=== PATIENT | female | born 1945 | race Caucasian/White ===

== ENCOUNTER 2018-09-04 16:16 | Outpatient (REF) | payer MEDICARE, SELFPAY | END 2018-09-04 16:36 | LOC: LBN 16:16 | PROVIDERS: PCP Family Medicine; Visit Provider Obstetrics & Gynecology | DX: N39.3 Stress incontinence (female) (male) (principal) | CPT/HCPCS: 87086 ==

== ENCOUNTER → 2018-10-21 08:33 | Outpatient (BNVA) | payer MEDICARE, SELFPAY | PROVIDERS: PCP Family Medicine; Visit Provider Urology | DX: Z90.710 Acquired absence of both cervix and uterus (principal); N39.3 Stress incontinence (female) (male); I10 Essential (primary) hypertension | CPT/HCPCS: 51798; 99203; 99215 ==

== ENCOUNTER 2019-01-22 07:58 | Inpatient (IN) | payer MEDICARE, SELFPAY ==
[2019-01-22] VITALS (18 sets, daily range): BP systolic 101–181; BP diastolic 47–86; PULSE 54–71; RESP 10–18; TEMP 36–36.9; O2SAT 94–100
[2019-01-22] MEDS: Lactated Ringers 1,000 ML 80 ML IV ×3 (08:51→14:51)
--- NOTE | 2019-01-22 09:59 | W.PM.HP.N ---
Date of service: 01/22/19 Time of Service: 09:59 Assessment and Plan (1) Urinary, incontinence, stress female: Current visit: Yes Status: Chronic She is reluctant to have a mesh product used given her previous inguinal hernia complications. We have decided to go ahead with a pubovaginal sling utilizing autologous fascia. We will plan on harvesting the fascia from the rectus through an abdominal incision. I have offered to provide an injection up toward the psoas muscle on the right. This injection will be given vaginally rather than abdominally We will plan on keeping the patient here in the hospital overnight with a Valdovinos catheter. Depending on her pain medication requirement and her ability to tolerate oral intake, she may be able to go home with a catheter tomorrow. Her daughter is a nurse and would be able to remove her catheter at home so she would not need another trip into our office. History of Present Illness Chief Complaint: Stress urinary incontinence Narrative: This is a 73-year-old woman who was evaluated for stress urinary incontinence. Her leakage has been present for over a year now. The number of incontinent episodes are increasing both in frequency and in severity. Her leakage occurs when she coughs laughs or sneezes. She does not have urgency or urgency incontinence. She has no enuresis. She does not leak when she is supine. She has had 4 previous vaginal deliveries. She has had an abdominal hysterectomy. She has never had pelvic radiation. She is a history of a right inguinal hernia using mesh. The mesh was subsequently removed but she has chronic pain which is felt to be related to her Psoas muscle. Review of Systems Review of Systems No fevers or chills No vision change or dysphasia No diabetes or thyroid No shortness of breath, cough or hemoptysis No chest pain. Hx SVT No nausea, vomiting, hepatitis, ulcers, jaundice, diarrhea or constipation No seizures, strokes or peripheral neuropathy No bleeding disorders or anemia No gout. Chronic right groin pain PFSH Medical History Urinary, incontinence, stress female (Chronic) Atrophic vaginitis (Acute 02/24/13) Lichen sclerosus et atrophicus (Acute 06/26/12) Neuropathy (Acute) Benign paroxysmal positional vertigo (Acute) Bronchiectasis (Acute) [place] lesion of lung (Acute) Diverticulitis of gastrointestinal tract (Acute) Dysphagia (Acute) Edema (Acute) Extrapyramidal disease (Acute) Generalized anxiety disorder (Acute) Hemoptysis (Acute) Hip pain (Acute) Hyperlipidemia (Acute) Inflammatory dermatosis (Acute) Menopause (Acute) Palpitations (Acute) Restless legs (Acute) Right lower quadrant pain (Acute) Urinary incontinence (Acute) Varicose veins of lower extremity (Acute) Hypertensive disorder (Chronic) Hypothyroidism (Chronic) Supraventricular tachycardia (Chronic) Surgical History Acquired absence of both cervix and uterus (Acute 12/02/17) History of left cataract surgery (Acute) History of right cataract surgery (Acute) H/O tubal ligation (Chronic) History of hernia repair (Chronic) Hx of cholecystectomy (Chronic) Abdominal hysterectomy (~1984) Biopsy of breast (~2004) varicose vein stripping Family History Mother Colon cancer Heart disease Father Cancer Social History Smoking/Tobacco Use Status: Never Alcohol Intake: never Drug use: Never Household members: spouse What type of physical activity do you participate in: none Meds Home Medications Medication Instructions Recorded Confirmed Type Bioflavanoids DAILY 02/24/13 09/04/18 History Bluegreen Algae 500 mg PO DAILY 02/24/13 01/22/19 History Feverfew 500 mg PO DAILY 02/24/13 01/22/19 History Rutin DAILY 02/24/13 09/04/18 History gabapentin 300 mg PO BID 02/24/13 01/22/19 History lorazepam 0.5 mg PO PRN 02/24/13 01/22/19 History aspirin [Aspir 81] 81 mg PO DAILY tab-cap 06/17/14 01/22/19 History Atorvastatin Calcium 10 mg PO DAILY tab-cap 12/02/17 01/22/19 History cannabidiol (CBD) 100 mg/mL oral See Rx Instructions PO DAILY ml 09/04/18 01/22/19 History solution ciprofloxacin 0.3 %-dexamethasone 2 drp OT BID PRN ml 09/04/18 01/22/19 History 0.1 % ear drops,suspension lutein-zeaxanthin 25 mg-5 mg 1 cap PO DAILY cap 09/04/18 01/22/19 History capsule propranolol ER 80 mg capsule,24 80 mg PO DAILY 09/04/18 01/22/19 History hr,extended release levothyroxine 137 mcg PO DAILY 01/20/19 01/22/19 History Allergies Allergy/AdvReac Type Severity Reaction Status Date / Time oxycodone HCl [From Percocet] Allergy itching/nick Unverified 01/20/19 12:22 h Exam Const General: cooperative, healthy appearing, comfortable and no acute distress Neck Neck: supple Resp Effort & Inspection: normal respiratory effort Auscultation: clear to auscultation bilaterally Cardio Rate: regular rate Rhythm: regular rhythm GI Palpation: soft and no masses Skin General skin exam: no rashes or lesions noted Neuro General: alert, awake and oriented x3 Extrem General: no edema Results Last Vital Signs Temp 36 C L 01/22/19 08:34 Pulse 64 01/22/19 08:34 Resp 16 01/22/19 08:34 BP 136/86 01/22/19 08:34 Pulse Ox 100 01/22/19 08:34
[2019-01-22] MEDS: Bupivacaine LIPOSOME/PF 133 MG/10 ML VIAL IJ (10:59)
[2019-01-22] MEDS: ceFAZolin 1 GM/50 ML BAG IVPB (11:10)
[2019-01-22] MEDS: Normal Saline 20 ML VIAL (12:37)
--- NOTE | 2019-01-22 15:46 | NUR.NOTE ---
Addendum entered by Tamiko Hartmann 01/22/19 15:49: Denies CP or pressure. Telemetry applied. BS +. Enc to take deep breaths and cough. ABD dressing CDI. Patient has vaginal packing in place w scant blood noted on skin around vaginal area. Valdovinos to gravity drainage w pink urine noted in bag and tubing. SCD's in use. PP+ All extremities are warm w good pulses. NO LE edema noted. Sipping clear liquids well. Oriented to call allison system and upper bed rails in use. See VS intervention. Original Note: Nursing Note: Admited from PACU to room 208 via stretcher. Slider mat used for transfer. Well tolerated. Denies pain or nausea. States is somewhat anxious at time pre op and immediately post op but appears relaxed at this time & states she is pretty good. LS clear and diminihsed
[2019-01-22 16:25] LABS: Anion Gap 9.6 mmol/L (3-11); BUN 13 mg/dL (7-18); CO2 25.4 mmol/L (21.0-32.0); CREATININE 0.83 mg/dL (0.55-1.02); Chloride 102 mmol/L (98-107); Glucose 193 mg/dL (70-100); Potassium 3.7 mmol/L (3.5-5.1); Sodium 137 mmol/L (136-145)
[2019-01-22 16:33] LABS: Magnesium 1.8 mg/dL (1.8-2.4)
[2019-01-22 16:46] LABS: Troponin I < 0.02 ng/mL (0.00-0.06)
[2019-01-22] MEDS: Ketorolac 15 MG/ML VIAL IVP ×2 (18:13→23:42)
[2019-01-22] MEDS: Normal Saline Flush 10 ML SYR IV (18:14)
[2019-01-22] MEDS: Gabapentin 300 MG CAP PO (19:54)
[2019-01-23] MEDS: Lactated Ringers 1,000 ML 80 ML IV (04:03)
[2019-01-23] MEDS: Ketorolac 15 MG/ML VIAL IVP (06:33)
[2019-01-23 06:52] LABS: HCT 32.9 % (36.0-46.0); Mean Corp. HGB Concentration 33.4 g/dL (32.0-36.0); Mean Corpuscular Hemoglobin 31.2 pg (27.0-33.0); Mean Corpuscular Volume 93.2 fL (80-95); Mean Platelet Volume 11.6 fL (8.0-11.0); Platelet Count 166 x1000/uL (130-400); RBC 3.53 m/cumm (4.00-5.20); RBC Distribution Width 12.1 % (11.7-14.6); White Blood Cell Count 12.31 k/cumm (4.4-10.8)
--- NOTE | 2019-01-23 07:47 | PDOC.CMIN ---
- If Service Date Differs Date of service: 01/23/19 Time of Service: 07:47 Care Management Initial Assess REASON FOR HOSPITALIZATION:: Stress Incontinence PAST MEDICAL HISTORY/PAST SURGICAL HISTORY:: Medical History: Urinary, incontinence, stress female, Atrophic vaginitis, Lichen sclerosus et atrophicus, Neuropathy ,Benign paroxysmal positional vertigo ,. Bronchiectasis, [place] lesion of lung, Diverticulitis of gastrointestinal tract. Dysphagia, Edema, Extrapyramidal disease,Generalized anxiety disorder te). Hemoptysis, Hip pain, Hyperlipidemia,Inflammatory dermatosis,Menopause. Palpitations, Restless legs, Right lower quadrant pain, Urinary incontinence. Varicose veins of lower extremity, Hypertensive disorder, Hypothyroidism. Supraventricular tachycardia. Surgical History. Acquired absence of both cervix and uterus (Acute 12/02/17). History of left cataract surgery (Acute). History of right cataract surgery (Acute). H/O tubal ligation (Chronic). History of hernia repair (Chronic). Hx of cholecystectomy (Chronic). Abdominal hysterectomy (~1984). Biopsy of breast (~2004). varicose vein stripping PREVIOUS FUNCTIONAL STATUS/SOCIAL/FAMILY SUPPORTS:: Karen lives in a single family home in [facility] [place] with her [employer]. 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 One daughter is a nurse at [employer] and she will stay with Karen through the weekend to help her out. Karen is completely independent with ADLs and driving. CURRENT FUNCTIONAL STATUS:: Karen was sitting up in bed during CM visit. She stated that she feels really good and has no pain. She had surgery yesterday to address her stress incontinence. She will be discharged home later today with a garcia catheter, which her daughter will help her care for. ADVANCE DIRECTIVES:: Does not have and is not interested. Has patient been provided with information about the portal?: Yes Did the patient sign up for the portal?: No CODE STATUS:: Full Code INSURANCE COVERAGE / FINANCIAL ISSUES:: Medicare. [employer] CURRENT HOME/COMMUNITY SERVICES/EQUIPMENT:: None PRIMARY CARE PHYSICIAN:: Lina Macario POTENTIAL DISCHARGE NEEDS:: None identified. RN daughter will assist with catheter care and dressing changes. PATIENT/FAMILY EDUCATION NEEDS:: Discharge plan, limitations, follow up plan of care, Ask Me Three ANTICIPATED BARRIERS TO DISCHARGE:: none TRANSPORTATION:: Via private automobile with family at discharge. PLAN:: Karen will be discharged home with garcia catheter in place this afternoon. Her daughter, who is a nurse, will assist with catheter care, voiding trial when ready and dressing changes. No additional services are required. She will be transported home with family via private auto. She will follow up with her surgeon early next with and with the discharge plan of care.
--- NOTE | 2019-01-23 07:56 | DSE_ITS ---
Date of service: 01/23/19 Time of Service: 12:18 DS: Diagnosis Discharge Diagnosis (1) Urinary, incontinence, stress female: Status: Chronic (2) History of pubovaginal sling: Status: Inactive Discharge Plan Disposition Patient Disposition: HOME Condition: Stable Discharge Details Reason For Visit: STRESS INCONTINENCE Admit Date/Time: 01/22/19 07:58 Admit Provider: José Lange Attending Provider: José Lange Primary Care Provider: Lina Macario Hospital Course Hospital Course: The patient was brought to the operating room on 01/22/2019. She underwent harvesting of rectus fascia for creation of a pubovaginal sling. The sling was successfully placed at the bladder neck. She had no ectopy during her procedure, but upon arrival to the recovery room, she was found to be in trigeminy. She had no clinical signs of hypoxia. She was not experiencing chest pain. The trigeminy resolved with an injection of lidocaine. She was monitored overnight on telemetry. No additional ectopy was noted. I did not ask for a formal hospitalist consult but had plan to do so if her ectopy continued. Based on the hospitalist recommendation, a single baseline troponin was obtained. The troponin level was quite low. No other significant abnormalities were found on her basic metabolic panel, magnesium level or CBC. A Garcia catheter was left in place and the patient was hospitalized overnight for IV hydration and analgesics. She was able to tolerate a regular diet and was transitioned to oral pain control. Her catheter showed bloody urine which gradually cleared with no additional intervention. Once we were sure she was able to be managed with oral analgesics, she was discharged to home. Home Meds and New Rx's Prescriptions: Discontinued aspirin [Aspir-81] 81 MG tablet,delayed release (DR/EC) 81 mg PO DAILY RF: 0 No Action propranolol 80 mg capsule,extended release 24 hr 80 mg PO DAILY RF: 0 lutein-zeaxanthin [Ocuvite Lutein 25] 25-5 mg capsule 1 cap PO DAILY RF: 0 cannabidiol (CBD) extract 100 mg/mL solution See Patient Comments PO DAILY RF: 0 Ciprodex 0.3-0.1 % drops,suspension 2 drp OT BID PRNRF: 0 hydrocodone-acetaminophen 5-325 mg tablet 1 - 2 tab PO Q4H MDD 6 PRN (Reason: pain) Qty: 30 RF: 0 lorazepam 0.5 MG tablet 0.5 mg PO PRN RF: 0 gabapentin 300 MG capsule 300 mg PO BID RF: 0 FEVERFEW 500 MG capsule 500 mg PO DAILY RF: 0 bioflavanoids DAILY RF: 0 bluegreen algae 500 mg PO DAILY RF: 0 rutin DAILY RF: 0 Atorvastatin Calcium 10 MG tablet 10 mg PO DAILY RF: 0 levothyroxine 137 mcg Capsule 137 mcg PO DAILY RF: 0 Discharge Instructions Additional Instructions: Hold aspirin until follow up appt No lifting over 10 pounds or straining OK to shower - expect steristrips to begin to come off on their own Pt's daughter will remove pts catheter on Friday 01/26 and replace garcia if pt unable to void (please send pt home with garcia kit) F/U with me @ 2 to 4 weeks - sooner if pt's catheter needs to be replaced on Saturday Stand Alone Forms: Nursing Discharge Form Referrals: Lina Macario [Primary Care Provider] - 02/09/19 2:20 pm Activity:: see above Equipment/Supplies:: garcia to gravity Diet:: As Tolerated Exam Narrative Exam Narrative: On the morning of discharge, she looks well. She does not appear septic or toxic. Her vital signs are documented elsewhere in the chart Her abdomen is soft with no guarding or rebound tenderness. Her surgical abdominal incision is clean and dry. Her Steri-Strips are intact. Her urethral catheter is in place draining red-tinged urine. No clots are identified in the catheter bag. Her vaginal packing has been successfully removed. She is awake, alert and oriented. DS: Data Vitals/I&O Vitals and I&O: Vital Signs Temperature 36.4 C L 01/22/19 20:57 Temperature Source Temporal Artery Scan 01/22/19 20:57 Pulse 66 01/22/19 23:12 Pulse Rhythm Regular 01/22/19 19:30 Respiratory Rate 17 01/22/19 20:57 Respiratory Effort Non-Labored 01/22/19 19:30 Respiratory Depth Normal 01/22/19 19:30 Respiratory Pattern Normal 01/22/19 19:30 Blood Pressure 110/61 01/22/19 20:57 Pulse Oximetry 97 01/22/19 20:57 Respiratory End-tidal CO2 32 01/22/19 14:10 Oxygen Delivery Method Room Air 01/22/19 20:57 Oxygen Flow Rate 0 01/22/19 20:57 Pain Level 3 01/22/19 18:14 Comment 01/22/19 18:14 Intake & Output 01/22/19 01/22/19 01/23/19 11:59 23:59 11:59 Intake Total 50 / 3405.333 3355.333 / 3405.333 936.000 / 936.000 Output Total 725 / 725 1050 / 1050 Balance 50 / 2680.333 2630.333 / 2680.333 -114.000 / -114.000 Weight 63.5 kg Intake: IV 50 / 2445.333 2395.333 / 2445.333 696.000 / 696.000 Oral 960 / 960 240 / 240 Output: Urine 625 / 625 1050 / 1050 Estimated Blood Loss 100 / 100 Other: Urine Color Dark Red Dark Red Urine Appearance Hematuria Hematuria Clots Comment clots in the line, cleared no clots Emesis Description None Labs on day of discharge: Labs from last 24 hours 01/23/19 01/22/19 01/22/19 06:25 16:03 16:03 WBC 12.31 H RBC 3.53 L Hgb 11.0 L Hct 32.9 L MCV 93.2 MCH 31.2 MCHC 33.4 RDW 12.1 Plt Count 166 MPV 11.6 H Sodium 137 Potassium 3.7 Chloride 102 Carbon Dioxide 25.4 Anion Gap 9.6 BUN 13 Creatinine 0.83 Estimated GFR/1.73 m2 >= 60.00 Glucose 193 H Calcium 8.0 L Magnesium 1.8 Troponin I < 0.02 [facility] Medical History Urinary, incontinence, stress female (Chronic) Atrophic vaginitis (Acute 02/24/13) Lichen sclerosus et atrophicus (Acute 06/26/12) Neuropathy (Acute) Benign paroxysmal positional vertigo (Acute) Bronchiectasis (Acute) [place] lesion of lung (Acute) Diverticulitis of gastrointestinal tract (Acute) Dysphagia (Acute) Edema (Acute) Extrapyramidal disease (Acute) Generalized anxiety disorder (Acute) Hemoptysis (Acute) Hip pain (Acute) Hyperlipidemia (Acute) Inflammatory dermatosis (Acute) Menopause (Acute) Palpitations (Acute) Restless legs (Acute) Right lower quadrant pain (Acute) Urinary incontinence (Acute) Varicose veins of lower extremity (Acute) Hypertensive disorder (Chronic) Hypothyroidism (Chronic) Supraventricular tachycardia (Chronic) Surgical History Acquired absence of both cervix and uterus (Acute 12/02/17) History of left cataract surgery (Acute) History of pubovaginal sling (Inactive 01/22/19) History of right cataract surgery (Acute) H/O tubal ligation (Chronic) History of hernia repair (Chronic) Hx of cholecystectomy (Chronic) Abdominal hysterectomy (~1984) Biopsy of breast (~2004) varicose vein stripping Family History Mother Colon cancer Heart disease Father Cancer Social History Smoking/Tobacco Use Status: Never Alcohol Intake: never Drug use: Never Household members: spouse What type of physical activity do you participate in: none
[2019-01-23 08:00] VITALS: BP 110/62; PULSE 65; RESP 18; TEMP 36.6; O2SAT 100
[2019-01-23] MEDS: Docusate Sodium 100 MG CAP PO (09:01)
[2019-01-23] MEDS: Gabapentin 300 MG CAP PO (09:01)
[2019-01-23] MEDS: Atorvastatin 10 MG TAB PO (09:01)
--- NOTE | 2019-01-23 09:39 | ROE_ITS ---
REPORT OF OPERATIVE PROCEDURE DATE OF PROCEDURE January 22, 2019 PREOPERATIVE DIAGNOSIS Stress urinary incontinence. POSTOPERATIVE DIAGNOSIS Stress urinary incontinence. PROCEDURE Pubovaginal sling using autologous rectus fascia. SURGEON José Lange M.D. ANESTHESIA General. COMPLICATIONS None. ESTIMATED BLOOD LOSS 100 cc. HISTORY This is a 73-year-old woman who has had four previous vaginal deliveries. She has had a hysterectomy. She has progressive urinary incontinence when she coughs, laughs or sneezes. On examination, she has a hypermobile urethra consistent with stress urinary incontinence. She has escobar d some adverse reactions to mesh products when they were used for inguinal hernia repair. She is not interested in a mesh product for her incontinence. She presents for pubovaginal sling using autologou s fascia. OPERATIVE REPORT The patient was brought to the Operating Room on 01/22/19. After successful induction of general anest hesia, she is placed in the dorsal lithotomy position. Her low abdomen and her genitalia were both pr epped and draped sterilely. We began the procedure by harvesting the rectus fascia. We made a Pfannenstiel incision just above th e level of the symphysis pubis. The incision was extended down through the subcutaneous fat until th e rectus fascia was identified. A 2-cm x 10-cm segment of fascia was identified and isolated for the sling. The fascia was incised using the Bovie and dissected from the underlying rectus muscle. Once the fascial sling was secured, we checked the wound for hemostasis. We closed the gap in the rec tus fascia with segments of running #2-0 Prolene suture. We then turned our attention to the vaginal portion of the incision. A #16-Nepali Valdovinos catheter was passed through the urethra into the bladder. Catheter balloon was inflated with 10 cc of sterile wate r. The bladder was drained. The catheter was then clamped. The anterior vaginal wall was then injected using a combination of saline plus 1% lidocaine with epin ephrine. This provided hydrodissection on each side of the urethra out to the pelvic sidewall. An anterior vaginal wall incision was made overlying the urethra. We extended the excision back to th e bladder neck. We dissected on either side of the urethra up to the under surface of the rectus musc le. We swept the bladder and urethra medially to help prevent injury. We then prepared the sling by placing bundling sutures on each end of the fascial sling. We used #0 P rolene for this maneuver. We then passed Stamey needles from the abdominal incision down through the area of dissection lateral to the bladder and urethra. Once the needles were passed, we pulled the b undling sutures attached to the fascial sling from the vaginal area up to the abdominal area. We then performed cystoscopy and identified an area of suture within the right bladder sidewall. We then re- positioned the needle and re-positioned the sling so that no foreign material was identified within t he bladder. Once the needles had been successfully passed, we passed Dong scissors between the sling and the uret hra. We then tied the ends of the sling on the abdominal wall. We ensure that the sling was lying fla t against the urethra with no undue tension. The abdominal incision was then closed in two layers. We reapproximated the subcutaneous tissue with simple interrupted #2-0 Vicryl suture. The skin was clos ed with the subcuticular #4-0 Vicryl. The vaginal incision was closed with [id number] #2-0 Vicryl. A vaginal packing was applied. The catheter will be left in place for a minimum of three days to allow the bladder to heal. The patient tolerated this procedure well with no complications. The Estimated blood loss was less th an 100 cc. CC: Lina Macario M.D.
[2019-01-23] MEDS: Normal Saline Flush 10 ML SYR IV (11:07)
[2019-01-23 12:00] VITALS: BP 123/57; PULSE 67; RESP 16; TEMP 36.1; O2SAT 99
--- NOTE | 2019-01-23 12:08 | NUR.NOTE ---
Nursing Note: 1150: called [facility] to report that pt has dry mouth and vision is not as clear as it usually is; pt has scopolamine patch behind left ear. Fabby requests that patch be removed. RN removes patch and places in proper disposal site.
[2019-01-23] MEDS: HYDROcodone 5/Acetaminophen 325 TAB PO (12:28)
[2019-01-23 12:50] VITALS: PULSE 73
--- NOTE | 2019-01-23 14:09 | INITIAL_ITS ---
- If Service Date Differs Date of service: 01/23/19 Time of Service: 07:47 Care Management Initial Assess REASON FOR HOSPITALIZATION:: Stress Incontinence PAST MEDICAL HISTORY/PAST SURGICAL HISTORY:: Medical History: Urinary, incontinence, stress female, Atrophic vaginitis, Lichen sclerosus et atrophicus, Neuropathy ,Benign paroxysmal positional vertigo ,. Bronchiectasis, [place] lesion of lung, Diverticulitis of gastrointestinal tract. Dysphagia, Edema, Extrapyramidal disease,Generalized anxiety disorder te). Hemoptysis, Hip pain, Hyperlipidemia,Inflammatory dermatosis,Menopause. Palpitations, Restless legs, Right lower quadrant pain, Urinary incontinence. Varicose veins of lower extremity, Hypertensive disorder, Hypothyroidism. Supraventricular tachycardia. Surgical History. Acquired absence of both cervix and uterus (Acute 12/02/17). History of left cataract surgery (Acute). History of right cataract surgery (Acute). H/O tubal ligation (Chronic). History of hernia repair (Chronic). Hx of cholecystectomy (Chronic). Abdominal hysterectomy (~1984). Biopsy of breast (~2004). varicose vein stripping PREVIOUS FUNCTIONAL STATUS/SOCIAL/FAMILY SUPPORTS:: Karen lives in a single family home in [facility] with her [employer]. 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 One daughter is a nurse at [employer] and she will stay with Karen through the weekend to help her out. Karen is completely independent with ADLs and driving. CURRENT FUNCTIONAL STATUS:: Karen was sitting up in bed during CM visit. She stated that she feels really good and has no pain. She had surgery yesterday to address her stress incontinence. She will be discharged home later today with a garica catheter, which her daughter will help her care for. ADVANCE DIRECTIVES:: Does not have and is not interested. Has patient been provided with information about the portal?: Yes Did the patient sign up for the portal?: No CODE STATUS:: Full Code INSURANCE COVERAGE / FINANCIAL ISSUES:: Medicare. [employer] CURRENT HOME/COMMUNITY SERVICES/EQUIPMENT:: None PRIMARY CARE PHYSICIAN:: Lina Macario POTENTIAL DISCHARGE NEEDS:: None identified. RN daughter will assist with catheter care and dressing changes. PATIENT/FAMILY EDUCATION NEEDS:: Discharge plan, limitations, follow up plan of care, Ask Me Three ANTICIPATED BARRIERS TO DISCHARGE:: none TRANSPORTATION:: Via private automobile with family at discharge. PLAN:: Karen will be discharged home with garcia catheter in place this afternoon. Her daughter, who is a nurse, will assist with catheter care, void ing trial when ready and dressing changes. No additional services are required. She will be transported home with family via private auto. She will follow up with her surgeon early next with and with the discharge plan of care.
--- NOTE | 2019-01-23 15:07 | NUR.NOTE ---
Nursing Note: [id number]: found that pt had CBD oral supplement in medication drawer. called and left message at pt's home to arrange mode of return to pt. pt to call [phone] to discuss with RN
== END 2019-01-23 13:41 | disposition home or self-care (01) | DRG 748 ==
LOC: PDS 08:01 → MS 13:47
PROVIDERS: Admitting Provider Urology; PCP Family Medicine; Visit Provider Urology
PROC: 0TSD0ZZ Reposition Urethra, Open Approach (ICD-10-PCS; CPT 57288; principal; 2019-01-22 09:45)
PROC: 0TJB8ZZ Inspection of Bladder, Via Natural or Artificial Opening Endoscopic (ICD-10-PCS; CPT 52000; 2019-01-22 09:45)
DX: N39.3 Stress incontinence (female) (male) (principal); R00.8 Other abnormalities of heart beat; Z98.890 Other specified postprocedural states; Z96.0 Presence of urogenital implants; Z90.710 Acquired absence of both cervix and uterus; G89.18 Other acute postprocedural pain
CPT/HCPCS: 57288; 36415; 76942; 80048; 85027; 99238; NC; 83735; 84484; J0131; J0690; J1100; J1885; J2250; J2405; J3010

== ENCOUNTER → 2019-01-27 08:22 | Outpatient (BNVA) | payer MEDICARE, SELFPAY | PROVIDERS: PCP Family Medicine; Visit Provider Urology | DX: R33.8 Other retention of urine (principal); I10 Essential (primary) hypertension ==

== ENCOUNTER 2019-01-29 13:49 | Inpatient (IN) | payer MEDICARE, SELFPAY ==
[2019-01-29 09:16] VITALS: BP 146/71; PULSE 66; RESP 17; TEMP 36.7; O2SAT 98
[2019-01-29] MEDS: Lactated Ringers 1,000 ML 80 ML IV ×2 (09:41→19:00)
[2019-01-29] MEDS: ceFAZolin 1 GM/50 ML BAG IVPB (12:10)
--- NOTE | 2019-01-29 12:41 | W.PM.DSUDISC ---
Discharge Plan Disposition Patient Disposition: HOME Condition: Stable Discharge Details Reason For Visit: URINAIRY RETENTION Attending Provider: José Lange Primary Care Provider: Lina Macario Home Meds and New Rx's Prescriptions: No Action propranolol 80 mg capsule,extended release 24 hr 80 mg PO DAILY RF: 0 lutein-zeaxanthin [Ocuvite Lutein 25] 25-5 mg capsule 1 cap PO DAILY RF: 0 cannabidiol (CBD) extract 100 mg/mL solution See Patient Comments PO DAILY RF: 0 Ciprodex 0.3-0.1 % drops,suspension 2 drp OT BID PRNRF: 0 hydrocodone-acetaminophen 5-325 mg tablet 1 - 2 tab PO Q4H MDD 6 PRN (Reason: pain) Qty: 30 RF: 0 lorazepam 0.5 MG tablet 0.5 mg PO PRN RF: 0 gabapentin 300 MG capsule 300 mg PO BID RF: 0 FEVERFEW 500 MG capsule 500 mg PO DAILY RF: 0 bioflavanoids tablet 3 tab DAILY RF: 0 bluegreen algae 500 mg PO DAILY RF: 0 rutin tablet 3 tab DAILY RF: 0 Atorvastatin Calcium 10 MG tablet 10 mg PO DAILY RF: 0 aspirin [Aspir-81] 81 mg Tablet,Delayed Release (Dr/Ec) 81 mg PO RF: 0 levothyroxine 137 mcg Capsule 137 mcg PO DAILY RF: 0 Discharge Instructions Stand Alone Forms: DSU Post op Tonya Diaz (DSU) Activity:: no lifting over 10 pounds until f/u visit Shower/Bathe:: 24 hours Diet:: As Tolerated DS: Diagnosis Discharge Diagnosis (1) Urinary retention: Status: Acute
[2019-01-29 13:14] VITALS: BP 130/67; PULSE 64; RESP 16; TEMP 36; O2SAT 97
[2019-01-29 14:45] VITALS: BP 120/72; PULSE 65; RESP 18; TEMP 36.8; O2SAT 98
[2019-01-29] MEDS: Cephalexin 250 MG CAP PO ×2 (15:52→20:45)
[2019-01-29 15:56] VITALS: BP 121/74; PULSE 67; RESP 18; TEMP 36.8; O2SAT 99
--- NOTE | 2019-01-29 18:35 | NUR.NOTE ---
Addendum entered by Tamiko Hartmann 01/29/19 18:37: admit time 01/29/19 @ 1443. Original Note: Nursing Note: Admited from DSU to room 226via wc. A&O X# denies pain. Oriented to room and call allison system. SBG to bed. see shift assessment. sips of clear given.
[2019-01-29] MEDS: Atorvastatin 10 MG TAB PO (20:45)
[2019-01-29] MEDS: Docusate Sodium 100 MG CAP PO (20:45)
[2019-01-29] MEDS: Gabapentin 300 MG CAP PO (20:45)
[2019-01-30 00:05] VITALS: BP 126/54; PULSE 69; RESP 18; TEMP 36.2; O2SAT 98
[2019-01-30] MEDS: Lactated Ringers 1,000 ML 80 ML IV (06:06)
--- NOTE | 2019-01-30 07:29 | W.PM.PROGNOT ---
Date of Service Date of service: 01/30/19 Time of Service: 07:30 Assessment and Plan (1) Urinary retention: Current visit: No Status: Acute She is still unable to void even after release of her sling. With any physical obstruction from the sling having been addressed, the next most common issue we see are pelvic muscle spasms which cause more of a physiologic obstruction. I will give her a dose of alpha geremias this AM. We have also seen some improvement with the use of vaginal valium in these cases. Subjective Interval history since last seen: She has been unable to void even after release of her sling. She describes a pelvic burning sensation. She is able to tell when her bladder fills. Exam Narrative Exam Narrative: She does not appear flushed or septic. Her abdomen is soft with a healing lower abdominal incision. She is awake and alert. Objective Objective Clinical Data: Vital Signs Temperature 36.2 C L 01/30/19 00:05 Temperature Source Tympanic 01/30/19 00:05 Pulse 69 01/30/19 00:05 Pulse Rhythm Regular 01/29/19 20:20 Respiratory Rate 18 01/30/19 00:05 Respiratory Effort Non-Labored 01/29/19 20:20 Respiratory Depth Normal 01/29/19 20:20 Respiratory Pattern Normal 01/29/19 20:20 Blood Pressure 126/54 L 01/30/19 00:05 Pulse Oximetry 98 01/30/19 00:05 Oxygen Delivery Method Room Air 01/30/19 00:05 Oxygen Flow Rate 0 01/30/19 00:05 Pain Level 0 01/29/19 14:45 Comment 01/29/19 09:16 Intake & Output 01/29/19 01/29/19 01/30/19 11:59 23:59 11:59 Intake Total 2145 / 2145 1188 / 1188 Output Total 1825 / 1825 1100 / 1100 Balance 320 / 320 88 / 88 Weight 62.9 kg Intake: IV 930 / 930 888 / 888 Oral 1215 / 1215 300 / 300 Output: Urine 1825 / 1825 1100 / 1100 Other: Urine Color Pale Pale Yellow Yellow Urine Appearance Clear Clear
[2019-01-30 07:35] VITALS: BP 121/67; PULSE 71; RESP 18; TEMP 36.3; O2SAT 98
[2019-01-30] MEDS: diazePAM 5 MG TAB UD ×2 (08:27→15:32)
[2019-01-30] MEDS: Normal Saline Flush 10 ML SYR IV (08:30)
[2019-01-30] MEDS: Docusate Sodium 100 MG CAP PO ×2 (08:30→19:51)
[2019-01-30] MEDS: Cephalexin 250 MG CAP PO ×3 (08:30→19:51)
[2019-01-30] MEDS: Gabapentin 300 MG CAP PO ×2 (08:30→19:51)
[2019-01-30] MEDS: Tamsulosin 0.4 MG CAPCR 0.8 MG PO (08:36)
--- NOTE | 2019-01-30 09:18 | ROE_ITS ---
REPORT OF OPERATIVE PROCEDURE DATE OF PROCEDURE January 29, 2019 PREOPERATIVE DIAGNOSIS Urinary retention. POSTOPERATIVE DIAGNOSIS Urinary retention. PROCEDURE Cystoscopy with release of pubovaginal sling. SURGEON José Lange M.D. ANESTHESIA General. COMPLICATIONS None. ESTIMATED BLOOD LOSS Minimal. HISTORY This is a 73-year-old woman, who has a history of stress urinary incontinence. She had undergone plac ement of a pubovaginal sling using autologous fascia about a week ago. Her catheter was removed postoperatively, but she has been unable to urinate. She presents for releas e of her sling to help relieve any excess obstruction. DESCRIPTION OF PROCEDURE The patient was brought to the Operating Room on January 29, 2019. After successful induction of general anesthesia, she was placed in the dorsal lithotomy position. Her genitalia and perineum were prepped and draped. Her anterior vaginal wall incision was opened. The sling was identified and isolated with a right ang le. The sling was then incised to release it. Cystoscopy was then performed. No bladder injury was noted. The bladder was filled with 150 cc of mary ine. Pressure was placed on the pats abdominal wall and the fluid freely flowed from her urethra. We then re-closed the vaginal incision using a [id number] #2-0 Vicryl suture. The patient tolerated this procedure well. There were no complications and no appreciable blood loss. CC: Lina Macario M.D.
[2019-01-30] MEDS: LORazepam 0.5 MG TAB PO (13:42)
[2019-01-30 13:49] VITALS: BP 112/65; PULSE 75; RESP 18; TEMP 37.1; O2SAT 99
--- NOTE | 2019-01-30 14:16 | PDOC.CMIN ---
- If Service Date Differs Date of service: 01/30/19 Time of Service: 14:16 Care Management Initial Assess REASON FOR HOSPITALIZATION:: urinary retention PAST MEDICAL HISTORY/PAST SURGICAL HISTORY:: Medical History: Urinary, incontinence, stress female, Atrophic vaginitis, Lichen sclerosus et atrophicus, Neuropathy ,Benign paroxysmal positional vertigo ,. Bronchiectasis, [place] lesion of lung, Diverticulitis of gastrointestinal tract. Dysphagia, Edema, Extrapyramidal disease,Generalized anxiety disorder te). Hemoptysis, Hip pain, Hyperlipidemia,Inflammatory dermatosis,Menopause. Palpitations, Restless legs, Right lower quadrant pain, Urinary incontinence. Varicose veins of lower extremity, Hypertensive disorder, Hypothyroidism. Supraventricular tachycardia. Surgical History. Acquired absence of both cervix and uterus (Acute 12/02/17). History of left cataract surgery (Acute). History of right cataract surgery (Acute). H/O tubal ligation (Chronic). History of hernia repair (Chronic). Hx of cholecystectomy (Chronic). Abdominal hysterectomy (~1984). Biopsy of breast (~2004). varicose vein stripping PREVIOUS FUNCTIONAL STATUS/SOCIAL/FAMILY SUPPORTS:: Karen lives in a single family home in [facility] with her Hima. 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 One daughter is a nurse at [employer] and she will stay with Karen through the weekend to help her out. Karen is completely independent with ADLs and driving. CURRENT FUNCTIONAL STATUS:: Karen was sitrting up in bed visiting with her Hima. She stated that she is in a great deal of pain it foster so bad when I try to urinate. She stated that it feels very much like it did when she had a urinary tract infection in the past. She communicated that her doctor planned to discharge her but that she does not want to leave until she can urinate on her own. ADVANCE DIRECTIVES:: none on file Has patient been provided with information about the portal?: Yes Did the patient sign up for the portal?: No CODE STATUS:: Full Code INSURANCE COVERAGE / FINANCIAL ISSUES:: Medicare. [employer] CURRENT HOME/COMMUNITY SERVICES/EQUIPMENT:: none PRIMARY CARE PHYSICIAN:: Lina Macario POTENTIAL DISCHARGE NEEDS:: May need home health nursing if self catheterizing is required. Karen will also need to follow up with her Urologist and the discharge plan of care. PATIENT/FAMILY EDUCATION NEEDS:: Discharge plan, limitations, follow up plan of care, Ask Me Three ANTICIPATED BARRIERS TO DISCHARGE:: none TRANSPORTATION:: Via private automobile with when ready PLAN:: Karen will be discharged home when ready. She may need services if self catheterization is required. CM will continue to provide support to patient, family, care team and discharge plan of care. Readmission - Date of First Admission Date of 1st Admission: 01/22/19 - Date of this Admission Date of Admission: 01/29/19 This admission was: Direct Admit - Office Visit Since 1st Admission Have you seen your PCP in the office since discharge?: No Had an appointment Been Scheduled?: Yes - Speicalist Appointments Have you seen any other specialist since your 1st Admission?: Yes Date you saw the Specialist: 01/27/19 - I. Interview patient and/or Family Difficulty reaching your doctor or getting an office appt?: No Have you had trouble purchasing/ or taking medication?: No Have you had trouble with getting meals at home?: No Describe your typical meals since you have been home: regular meals Did you feel ready for discharge when you left the last time: No (was unsure about having catheter) Why did you not feel ready for discharge?: unsure about how to deal with catheter What services were received?: none needed Did you call your physician beore you came to the ED?: No (N/A) How do you think you became sick enough to come back?: complication after surgery - Ask the Care Team Members: What do you think caused the patient to be readmitted: unplanned post op course - ED visits How many ED visits in the past 12 months: 0 - Assessment for Readmission Summary of readmission circumstances, based upon interviews: Patient had bladder sling surgery. Unable to void post-op. Had garcia for a week. Upon removal still unable to void. Went back to surgery to adjust sling. Post-op after second surgery still unable to void.
[2019-01-30 15:15] VITALS: BP 124/67; PULSE 75; RESP 16; TEMP 36.6; O2SAT 100
--- NOTE | 2019-01-30 15:37 | INITIAL_ITS ---
- If Service Date Differs Date of service: 01/30/19 Time of Service: 14:16 Care Management Initial Assess REASON FOR HOSPITALIZATION:: urinary retention PAST MEDICAL HISTORY/PAST SURGICAL HISTORY:: Medical History: Urinary, incontinence, stress female, Atrophic vaginitis, Lichen sclerosus et atrophicus, Neuropathy ,Benign paroxysmal positional vertigo ,. Bronchiectasis, [place] lesion of lung, Diverticulitis of gastrointestinal tract. Dysphagia, Edema, E xtrapyramidal disease,Generalized anxiety disorder te). Hemoptysis, Hip pain, Hyperlipidemia,Inflammatory dermatosis,Menopause. Palpitations, Restless legs, Right lower quadrant pain, Urinary incontinence. Varicose veins of lower extremity, Hypertensive disorder, Hypothyroidism. Supraventricular tachycardia. Surgical History. Acquired absence of both cervix and uterus (Acute 12/02/17). History of left cataract surgery (Acute). History of right cataract surgery (Acute). H/O tubal ligation (Chronic). History of hernia repair (Chronic). Hx of cholecystectomy (Chronic). Abdominal hysterectomy (~1984). Biopsy of breast (~2004). varicose vein stripping PREVIOUS FUNCTIONAL STATUS/SOCIAL/FAMILY SUPPORTS:: Karen lives in a single family home in [facility] with her Hima. 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 One daughter is a nurse at [employer] and she will stay with Karen through the weekend to help her out. Karen is completely independent with ADLs and driving. CURRENT FUNCTIONAL STATUS:: Karen was sitrting up in bed visiting with her Hima. She stated that she is in a great deal of pain it foster so bad when I try to urinate. She stated that it feels very much like it did when she had a urinary tract infection in the past. She communicated that her doctor planned to discharge her but that she does not want to leave until she can urinate on her own. ADVANCE DIRECTIVES:: none on file Has patient been provided with information about the portal?: Yes Did the patient sign up for the portal?: No CODE STATUS:: Full Code INSURANCE COVERAGE / FINANCIAL ISSUES:: Medicare. [facility] [employer] CURRENT HOME/COMMUNITY SERVICES/EQUIPMENT:: none PRIMARY CARE PHYSICIAN:: Lina Macario POTENTIAL DISCHARGE NEEDS:: May need home health nursing if self catheterizing is required. Karen will also need to follow up with her Urologist and the discharge plan of care. PATIENT/FAMILY EDUCATION NEEDS:: Discharge plan, limitations, follow up plan of care, Ask Me Three ANTICIPATED BARRIERS TO DISCHARGE:: none TRANSPORTATION:: Via private automobile with when ready PLAN:: Karen will be discharged home when ready. She may need HH services if self catheterization is required. CM will continue to provide support to patient, family, care team and discharge plan of care. Readmission - Date of First Admission Date of 1st Admission: 01/22/19 - Date of this Admission Date of Admission: 01/29/19 This admission was: Direct Admit - Office Visit Since 1st Admission Have you seen your PCP in the office since discharge?: No Had an appointment Been Scheduled?: Yes - Speicalist Appointments Have you seen any other specialist since your 1st Admission?: Yes Date you saw the Specialist: 01/27/19 - I. Interview patient and/or Family Difficulty reaching your doctor or getting an office appt?: No Have you had trouble purchasing/ or taking medication?: No Have you had trouble with getting meals at home?: No Describe your typical meals since you have been home: regular meals Did you feel ready for discharge when you left the last time: No (was unsure about having catheter) Why did you not feel ready for discharge?: unsure about how to deal with catheter What services were received?: none needed Did you call your physician beore you came to the ED?: No (N/A) How do you think you became sick enough to come back?: complication after surgery - Ask the Care Team Members: What do you think caused the patient to be readmitted: unplanned post op course - ED visits How many ED visits in the past 12 months: 0 - Assessment for Readmission Summary of readmission circumstances, based upon interviews: Patient had bladder sling surgery. Unable to void post-op. Had garcia for a week. Upon removal still unable to void. Went back to surgery to adjust sling. Post-op after second surgery still unable to void.
--- NOTE | 2019-01-30 17:18 | PHARADMIT ---
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 Objective BP-104/56 other VS okay no labs Assessment hydroxyzine ordered TID to use in addition to diazepam (vaginally) and tamsulosin phenazopyridine discontinued urine culture prelim no growth at 24 hours cephalexin continues (day 3) Plan continue to watch VS and for med changes Original Note: Admission Pharmacy Clinical Review urinary retention Code Status full Current Weight 62.9 kg Renally Cleared and Narrow Therapeutic Index Meds Crcl ~50.50 mL/min current meds okay QTc Value / Action Taken n/a BP Control, Fever BP 124/67 afebrile Electrolytes reviewed n/a DVT Prophylaxis none Opiate Usage / Scheduled Bowel Regimen Ordered prn/hellen docusate Plt/SCr for Heparin / Enoxaparin n/a INR for Warfarin n/a H/H stable, WBC/Bands n/a Antibiotic appropriateness cephalexin Cultures and Sensitivities urine culture pending Surgical ABX d/c within 24 hr n/a DM control / Insulin Dosing n/a Heart Failure (Check EF%) (CLARA's, B-Block, Diuretics) propranolol IV to PO Switch n/a Home Meds Reviewed multiple agents with antiplatelet properties (aspirin, feverfew) multiple F[employer]ER [employer] depressants (hydrocodone/APAP, gabapentin, lorazepam, cannabidiol) Home Meds Not Ordered aspirin, bioflavinoids, bluegreen algae, feverfew, ocuvite lutein, rutin Comments propranolol 40 mg IR scheduled BID as pt unable to bring in her own 80 mg CR
[2019-01-30 17:53] LABS: Bilirubin Negative (Negative); Blood Trace-lysed (Negative); Clarity Clear; Glucose Negative (Negative); Ketones Negative (Negative); Leukocyte Esterase Negative (Negative); Nitrite Negative (Negative); Urobilinogen 0.2 EU/dL (Up TO 0.2); pH 7.5 (5-8)
[2019-01-30 19:17] LABS: Bacteria Rare HPF (Negative); C & S Indicated? No; Casts Negative LPF (Negative); Crystals Negative HPF (Negative); Epithelial Cells Negative HPF (Negative); Mucus Negative (Negative); Other Cells Negative (Negative); RBC 0-2 (0-2); WBC Negative HPF (0-5)
[2019-01-30] MEDS: Propranolol 40 MG TAB PO (19:51)
[2019-01-30] MEDS: Phenazopyridine 100 MG TAB PO (19:51)
[2019-01-30] MEDS: Atorvastatin 10 MG TAB PO (19:51)
[2019-01-30 23:36] VITALS: BP 119/77; PULSE 68; RESP 16; TEMP 36.9; O2SAT 97
[2019-01-31] MEDS: diazePAM 5 MG TAB UD ×3 (00:01→17:57)
[2019-01-31] MEDS: Lidocaine 2% Jelly 6 ML SYR 5 ML TP ×2 (00:20→03:58)
[2019-01-31 04:15] VITALS: BP 104/61; PULSE 68; RESP 17; TEMP 36.7; O2SAT 97
[2019-01-31 07:10] VITALS: BP 104/56; PULSE 72; RESP 16; TEMP 36.7; O2SAT 97
[2019-01-31] MEDS: Milk of Magnesia 30 ML CUP PO (07:49)
[2019-01-31] MEDS: Phenazopyridine 100 MG TAB PO (08:22)
[2019-01-31] MEDS: Propranolol 40 MG TAB PO ×2 (08:22→21:01)
[2019-01-31] MEDS: Gabapentin 300 MG CAP PO ×2 (08:23→21:02)
[2019-01-31] MEDS: Docusate Sodium 100 MG CAP PO (08:23)
[2019-01-31] MEDS: Tamsulosin 0.4 MG CAPCR 0.8 MG PO (08:23)
[2019-01-31] MEDS: Cephalexin 250 MG CAP PO ×3 (08:23→21:02)
--- NOTE | 2019-01-31 09:00 | W.PM.PROGNOT ---
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 These patients respond to pelvic floor physical therapy, but I would not recommend this soon after her pelvic surgery. She has already been started on vaginal valium and alpha blockers. I will add it Vistaril and warm soaks to the pelvic muscles. If she is still unable to void, the best management is CIC. If the patient is unable to do so, a suprapubic tube might be her next best option. That way, she can clamp the catheter to attempt nto void, but unclamp if she is unable to void. Subjective Interval history since last seen: The patient has still been unable to void. She can sense the need to void but is unable to start a stream. She describes intense burning when she sits to void, but not in between voids. She is now unable to move bowels as well. Exam Narrative Exam Narrative: She appears comfortable at this time. He abdominal incision is healing very well. Her UA is reassuring for the absence of a UTI Objective Objective Clinical Data: Abnormal lab results 01/30/19 Range/Units 17:15 Urine Blood Trace-lysed H (Negative) Vital Signs Temperature 36.7 C 01/31/19 04:15 Temperature Source Tympanic 01/31/19 04:15 Pulse 68 01/31/19 04:15 Pulse Rhythm Regular 01/31/19 07:50 Respiratory Rate 17 01/31/19 04:15 Respiratory Effort Non-Labored 01/31/19 07:50 Respiratory Depth Normal 01/31/19 07:50 Respiratory Pattern Normal 01/31/19 07:50 Blood Pressure 104/61 01/31/19 04:15 Pulse Oximetry 97 01/31/19 04:15 Oxygen Delivery Method Room Air 01/31/19 04:15 Oxygen Flow Rate 0 01/31/19 04:15 Pain Level 0 01/30/19 13:49 Comment 01/29/19 09:16 Intake & Output 01/30/19 01/30/19 01/31/19 11:59 23:59 11:59 Intake Total 2118 / 3018 900 / 3018 150 / 150 Output Total 1885 / 3185 1300 / 3185 1275 / 1275 Balance 233 / -167 -400 / -167 -1125 / -1125 Intake: IV 1098 / 1098 Oral 1020 / 1920 900 / 1920 150 / 150 Output: Urine 1885 / 3185 1300 / 3185 1275 / 1275 Other: Urine Color Yellow Pale Straw Yellow Urine Appearance Hematuria Clear Clear Urine Odor None Comment Rn notified right side - 209mls, center - 538mls, left side - 185mls Voiding Methods Toilet Laboratory Results Urine Color Yellow (Yellow) 01/30/19 17:15 Urine Clarity Clear 01/30/19 17:15 Urine pH 7.5 (5-8) 01/30/19 17:15 Ur Specific [place] 1.010 (1.005-1.025) 01/30/19 17:15 Urine Protein Negative mg/dL (Negative) 01/30/19 17:15 Urine Ketones Negative mg/dL (Negative) 01/30/19 17:15 Urine Blood Trace-lysed (Negative) H 01/30/19 17:15 Urine Nitrite Negative (Negative) 01/30/19 17:15 Urine Bilirubin Negative (Negative) 01/30/19 17:15 Urine Urobilinogen 0.2 EU/dL (Up TO 0.2) 01/30/19 17:15 Ur Leukocyte Esterase Negative (Negative) 01/30/19 17:15 Urine RBC 0-2 (0-2) 01/30/19 17:15 Urine WBC Negative HPF (0-5) 01/30/19 17:15 Ur Epithelial Cells Negative HPF (Negative) 01/30/19 17:15 Urine Crystals Negative HPF (Negative) 01/30/19 17:15 Urine Bacteria Rare HPF (Negative) 01/30/19 17:15 Urine Casts Negative LPF (Negative) 01/30/19 17:15 Urine Mucus Negative (Negative) 01/30/19 17:15 Urine Other Negative (Negative) 01/30/19 17:15 Ur Culture Indicated? No 01/30/19 17:15 Urine Glucose Negative mg/dL (Negative) 01/30/19 17:15
[2019-01-31] MEDS: hydrOXYzine PAMOATE 25 MG CAP PO ×3 (10:51→21:01)
--- NOTE | 2019-01-31 10:55 | NUR.NOTE ---
Nursing Note: This RN attempted to do education about self catheterization at home. The patient continues to refuse to consider this option. She states that the hospital staff will simply fix her and she will go home normal
--- NOTE | 2019-01-31 14:22 | PDOC.CMPRO ---
Care Management Progress Note S/O: Undetermined surgical intervention at this time; please refer to Dr. Lange's note from today for further information. Karen was in the bathroom when CM attempted to meet with her, her was sitting in the room and was pleasant in interaction. CM continues to follow. A: 73 year old female admitted to [facility] 01/29/19 for Urinary Retention s/p cystocopy with release of pubovaginal sling 01/29/19. Placement of pubogaginal sline using autologous fascia 01/22/19, admitted for release of her sling to relieve any excess obstruction as she has been unable to urinate. P: CM will continue to follow; anticipate [facility] RN orders in event self catheterization is required.
[2019-01-31] MEDS: Polyethylene Glycol 3350 17 GM PACKET PO (14:25)
--- NOTE | 2019-01-31 14:27 | CMPROGNOTE_ITS ---
Care Management Progress Note S/O: Undetermined surgical intervention at this time; please refer to Dr. Lange's note from today for further information. Karen was in the bathroom when CM attempted to meet with her, her was sitting in the room and was pleasant in interaction. CM continues to follow. A: 73 year old female admitted to [facility] 01/29/19 for Urinary Retention s/p cystocopy with release of pubovaginal sling 01/29/19. Placement of pubogaginal sline using autologous fascia 01/22/19, admitted for release of her sling to relieve any excess obstruction as she has been unable to urinate. P: CM will continue to follow; anticipate [facility] RN orders in event self catheterization is required.
--- NOTE | 2019-01-31 14:50 | NUR.NOTE ---
Nursing Note: patient states that the last time she tried to void that she did not have any burning pain. Patient has been experiencing burning pain every time she has tried to void
[2019-01-31 15:30] VITALS: BP 110/68; PULSE 76; RESP 16; TEMP 37; O2SAT 95
[2019-01-31] MEDS: Mylanta Suspension 30 ML CUP PO (17:08)
[2019-01-31] MEDS: Normal Saline Flush 10 ML SYR IV (18:09)
[2019-01-31] MEDS: LORazepam 0.5 MG TAB PO (21:01)
[2019-01-31] MEDS: Atorvastatin 10 MG TAB PO (21:01)
[2019-01-31 21:14] VITALS: BP 116/59; PULSE 74; RESP 18; TEMP 36.8; O2SAT 97
[2019-02-01] MEDS: diazePAM 5 MG TAB UD ×3 (04:40→21:15)
[2019-02-01 04:56] VITALS: BP 111/53; PULSE 70; RESP 16; TEMP 36.8; O2SAT 95
[2019-02-01 07:52] VITALS: BP 134/70; PULSE 72; RESP 15; TEMP 36.9; O2SAT 97
[2019-02-01] MEDS: Propranolol 40 MG TAB PO ×2 (07:57→19:44)
[2019-02-01] MEDS: Gabapentin 300 MG CAP PO ×2 (07:57→19:44)
[2019-02-01] MEDS: Tamsulosin 0.4 MG CAPCR 0.8 MG PO (07:57)
[2019-02-01] MEDS: Docusate Sodium 100 MG CAP PO ×2 (07:57→19:44)
[2019-02-01] MEDS: Cephalexin 250 MG CAP PO ×3 (07:57→19:44)
[2019-02-01] MEDS: hydrOXYzine PAMOATE 25 MG CAP PO ×3 (07:57→19:43)
--- NOTE | 2019-02-01 11:06 | W.PM.PROGNOT ---
Date of Service Date of service: 02/01/19 Time of Service: 11:07 Assessment and Plan (1) Urinary retention: Current visit: No Status: Acute She is unable to tolerate an indwelling urethral catheter and unable/unwilling to perform self cath. i believe our only other option is to place a small suprapubic tube. We would then be able to plug the catheter to allow her to attempt to void and drain herself if she is unable to empty. I will make her NPO after midnight and discuss the SP tube with her again in the AM. Subjective Interval history since last seen: Her bowels have moved but she is still unable to void. She is not going to be able perform self catheterization at home in spite of extensive teaching but our staff. Exam Narrative Exam Narrative: She does not appear flushed or septic. Her abdominal incision is well healed Objective Objective Clinical Data: Vital Signs Temperature 36.9 C 02/01/19 07:52 Temperature Source Tympanic 02/01/19 07:52 Pulse 72 02/01/19 07:52 Pulse Rhythm Regular 02/01/19 07:58 Respiratory Rate 15 02/01/19 07:52 Respiratory Effort Non-Labored 02/01/19 07:58 Respiratory Depth Normal 02/01/19 07:58 Respiratory Pattern Normal 02/01/19 07:58 Blood Pressure 134/70 02/01/19 07:52 Pulse Oximetry 97 02/01/19 07:52 Oxygen Delivery Method Room Air 02/01/19 04:56 Oxygen Flow Rate 0 02/01/19 04:56 Pain Level 0 02/01/19 07:52 Comment 01/29/19 09:16 Intake & Output 01/31/19 01/31/19 02/01/19 11:59 23:59 11:59 Intake Total 150 / 1325 1175 / 1325 1220 / 1220 Output Total 1775 / 2400 625 / 2400 2150 / 2150 Balance -1625 / -1075 550 / -1075 -930 / -930 Intake: IV 5 / 5 0 / 0 Oral 150 / 1320 1170 / 1320 1220 / 1220 Output: Urine 1775 / 2400 625 / 2400 2150 / 2150 Other: Urine Color [place] Yellow Urine Appearance Clear Clear Clear Comment notified PLACIDO [place] [phone] Stool Size Moderate Stool Characteristics Soft Formed Laboratory Results Urine Color Yellow (Yellow) 01/30/19 17:15 Urine Clarity Clear 01/30/19 17:15 Urine pH 7.5 (5-8) 01/30/19 17:15 Ur Specific [place] 1.010 (1.005-1.025) 01/30/19 17:15 Urine Protein Negative mg/dL (Negative) 01/30/19 17:15 Urine Ketones Negative mg/dL (Negative) 01/30/19 17:15 Urine Blood Trace-lysed (Negative) H 01/30/19 17:15 Urine Nitrite Negative (Negative) 01/30/19 17:15 Urine Bilirubin Negative (Negative) 01/30/19 17:15 Urine Urobilinogen 0.2 EU/dL (Up TO 0.2) 01/30/19 17:15 Ur Leukocyte Esterase Negative (Negative) 01/30/19 17:15 Urine RBC 0-2 (0-2) 01/30/19 17:15 Urine WBC Negative HPF (0-5) 01/30/19 17:15 Ur Epithelial Cells Negative HPF (Negative) 01/30/19 17:15 Urine Crystals Negative HPF (Negative) 01/30/19 17:15 Urine Bacteria Rare HPF (Negative) 01/30/19 17:15 Urine Casts Negative LPF (Negative) 01/30/19 17:15 Urine Mucus Negative (Negative) 01/30/19 17:15 Urine Other Negative (Negative) 01/30/19 17:15 Ur Culture Indicated? No 01/30/19 17:15 Urine Glucose Negative mg/dL (Negative) 01/30/19 17:15
--- NOTE | 2019-02-01 14:22 | PDOC.CMPRO ---
Care Management Progress Note S/O: Per Dr. Lange, Karen is unable or unwilling to tolerate an indwelling urethral catheter or perform self catheterization (extensive teaching provided) as she is not comfortable with this plan. Per report, Dr. Lange intends to place a suprapubic tube, he has ordered she be NPO after midnight and will meet with her in the morning to review the plan. CM continues to follow. A: 73 year old female admitted to [facility] 01/29/19 for Urinary Retention s/p cystocopy with release of pubovaginal sling 01/29/19. Placement of pubovaginal sling using autologous fascia 01/22/19, admitted for release of her sling to relieve any excess obstruction as she has been unable to urinate. P: CM will continue to follow; anticipate Karen may have [facility] RN services ordered upon discharge but plan remains unclear at this time.
[2019-02-01 16:31] VITALS: BP 109/65; PULSE 75; RESP 18; TEMP 37.1; O2SAT 98
[2019-02-01] MEDS: Mylanta Suspension 30 ML CUP PO (16:45)
[2019-02-01] MEDS: Atorvastatin 10 MG TAB PO (19:44)
[2019-02-01] MEDS: Lidocaine 2% Jelly 6 ML SYR 5 ML TP (19:55)
[2019-02-01 23:35] VITALS: BP 114/62; PULSE 70; RESP 16; TEMP 36.3; O2SAT 97
[2019-02-02] VITALS (10 sets, daily range): BP systolic 100–146; BP diastolic 56–75; PULSE 60–83; RESP 16–19; TEMP 36–36.5; O2SAT 96–98
[2019-02-02] MEDS: diazePAM 5 MG TAB UD (06:24)
--- NOTE | 2019-02-02 07:39 | PGE_ITS ---
Date of Service Date of service: 02/02/19 Time of Service: 07:37 Assessment and Plan (1) Urinary retention: Current visit: No Status: Acute With her being unable to perform intermittent catheterization, is fine no good alternative to placing a suprapubic tube. The patient would then be able to clamp the tube while she attempts to void, and unclamp if and when her bladder does not empty. The patient is eager to have this done so that she can get back home after appropriate suprapubic care training Subjective Interval history since last seen: Patient has still been unable to perform intermittent catheterization. Exam Narrative Exam Narrative: She does not appear septic or toxic. She is awake and alert. Her abdomen is soft. Her surgical incisions are healing very nicely. Objective Objective Clinical Data: Vital Signs Temperature 36.3 C L 02/01/19 23:35 Temperature Source Tympanic 02/01/19 23:35 Pulse 70 02/01/19 23:35 Pulse Rhythm Regular 02/01/19 20:00 Respiratory Rate 16 02/01/19 23:35 Respiratory Effort Non-Labored 02/01/19 20:00 Respiratory Depth Normal 02/01/19 20:00 Respiratory Pattern Normal 02/01/19 20:00 Blood Pressure 114/62 02/01/19 23:35 Pulse Oximetry 97 02/01/19 23:35 Oxygen Delivery Method Room Air 02/01/19 23:35 Oxygen Flow Rate 0 02/01/19 23:35 Pain Level 0 02/01/19 16:31 Comment 01/29/19 09:16 Intake & Output 02/01/19 02/01/19 02/02/19 11:59 23:59 11:59 Intake Total 1220 / 1700 480 / 1700 Output Total 2150 / 5425 3275 / 5425 450 / 450 Balance -930 / -3725 -2795 / -3725 -450 / -450 Intake: IV 0 / 0 Oral 1220 / 1700 480 / 1700 Output: Urine 2150 / 5425 3275 / 5425 450 / 450 Other: Urine Color Yellow Light Nelia Light Nelia Urine Appearance Clear Clear Clear Comment rn carlos notified Stool Size Moderate Stool Characteristics Soft Formed Laboratory Results Urine Color Yellow (Yellow) 01/30/19 17:15 Urine Clarity Clear 01/30/19 17:15 Urine pH 7.5 (5-8) 01/30/19 17:15 Ur Specific [place] 1.010 (1.005-1.025) 01/30/19 17:15 Urine Protein Negative mg/dL (Negative) 01/30/19 17:15 Urine Ketones Negative mg/dL (Negative) 01/30/19 17:15 Urine Blood Trace-lysed (Negative) H 01/30/19 17:15 Urine Nitrite Negative (Negative) 01/30/19 17:15 Urine Bilirubin Negative (Negative) 01/30/19 17:15 Urine Urobilinogen 0.2 EU/dL (Up TO 0.2) 01/30/19 17:15 Ur Leukocyte Esterase Negative (Negative) 01/30/19 17:15 Urine RBC 0-2 (0-2) 01/30/19 17:15 Urine WBC Negative HPF (0-5) 01/30/19 17:15 Ur Epithelial Cells Negative HPF (Negative) 01/30/19 17:15 Urine Crystals Negative HPF (Negative) 01/30/19 17:15 Urine Bacteria Rare HPF (Negative) 01/30/19 17:15 Urine Casts Negative LPF (Negative) 01/30/19 17:15 Urine Mucus Negative (Negative) 01/30/19 17:15 Urine Other Negative (Negative) 01/30/19 17:15 Ur Culture Indicated? No 01/30/19 17:15 Urine Glucose Negative mg/dL (Negative) 01/30/19 17:15
[2019-02-02] MEDS: Normal Saline Flush 10 ML SYR IV ×3 (08:00→09:46)
[2019-02-02] MEDS: hydrOXYzine PAMOATE 25 MG CAP PO (08:08)
[2019-02-02] MEDS: Gabapentin 300 MG CAP PO ×2 (08:10→20:05)
[2019-02-02] MEDS: Tamsulosin 0.4 MG CAPCR 0.8 MG PO (08:10)
[2019-02-02] MEDS: Propranolol 40 MG TAB PO (08:10)
[2019-02-02] MEDS: Cephalexin 250 MG CAP PO ×3 (08:11→20:05)
[2019-02-02] MEDS: Lactated Ringers 1,000 ML 80 ML IV ×2 (08:24→15:51)
--- NOTE | 2019-02-02 11:15 | PDOC.CMPRO ---
- If Service Date Differs Date of service: 02/02/19 Time of Service: 11:19 Care Management Progress Note S/O: Karen was lying in bed, dozing, when CM visited. She is awaiting surgery to have a suprapubic tube placed. She states that she is unsure if she will be discharged home later today or tomorrow. She noted that she continues to have burning when she attempts to urinate. She states that the pyridium did not help to alleviate the burning. A: 73 year old female admitted to [facility] 01/29/19 for Urinary Retention s/p cystocopy with release of pubovaginal sling 01/29/19. Placement of pubovaginal sling using autologous fascia 01/22/19, admitted for release of her sling to relieve any excess obstruction as she has been unable to urinate. P: CM will continue to follow; anticipate Karen may have [facility] RN services ordered upon discharge but plan remains unclear at this time. cc:
--- NOTE | 2019-02-02 11:26 | CMPROGNOTE_ITS ---
- If Service Date Differs Date of service: 02/02/19 Time of Service: 11:19 Care Management Progress Note S/O: Karen was lying in bed, dozing, when CM visited. She is awaiting surgery to have a suprapubic tube placed. She states that she is unsure if she will be discharged home later today or tomorrow. She noted that she continues to have burning when she attempts to urinate. She states that the pyridium did not help to alleviate the burning. A: 73 year old female admitted to [facility] 01/29/19 for Urinary Retention s/p cystocopy with release of pubovaginal sling 01/29/19. Placement of pubovaginal sling using autologous fascia 01/22/19, admitted for release of her sling to relieve any excess obstruction as she has been unable to urinate. P: CM will continue to follow; anticipate Karen may have HC RN services ordered upon discharge but plan remains unclear at this time. cc:
[2019-02-02] MEDS: Lidocaine 2% Jelly 11 ML SYR (12:42)
[2019-02-02] MEDS: Bupivacaine 0.5% Pres-Free 30 ML VIAL (12:45)
--- NOTE | 2019-02-02 13:53 | ROE_ITS ---
DATE OF PROCEDURE: February 02, 2019 PREOPERATIVE DIAGNOSIS: Urinary retention. POSTOPERATIVE DIAGNOSIS: Same. PROCEDURE: Cystoscopy; insert suprapubic tube. SURGEON: José Lange M.D. ANESTHESIA: MAC with local. COMPLICATIONS: None. HISTORY: This is a 73-year-old woman who had undergone a bladder neck sling using autologous rectus fascia for stress urinary incontinence. She was unable to void after the procedure. We incised the sling, but she was still unable to void. She has been unable to master the art of intermittent dorinda terization. She presents now for placement of a suprapubic tube. OPERATIVE REPORT: The patient was brought to the Operating Room on 02/02/19. After successful induct ion of monitored anesthesia care, she was placed in the dorsal lithotomy position. Her genitalia was prepped and draped. Her low abdomen was likewise prepped and draped. A curved Lowsley retractor was passed through the urethra into the bladder. The tip of the Lowsley r etractor was brought up against the abdominal wall. The abdominal skin was incised and the tip of th e Lowsley was brought through the incision onto the abdominal wall. We opened the jaws of the Lowsley retractor and withdrew a 16 [place] Valdovinos catheter down through the suprapubic tract into the bladder. The catheter was released from the jaws of the Lowsley retractor. A cystoscopy was performed to ensure correct positioning of the catheter. The catheter balloon was then inflated with 10 cc's of sterile water. The catheter was hooked to gravity drainage. The patient tolerated the procedure well. There were no complications.
[2019-02-02] MEDS: Docusate Sodium 100 MG CAP PO (15:51)
--- NOTE | 2019-02-02 15:52 | CHAPLAIN ---
Karen was sleeping when I visited so I spoke with her , introduced myself and explained my role. I will try to visit Karen tomorrow.
--- NOTE | 2019-02-02 19:20 | NUR.NOTE ---
Nursing Note: 02/02/19 @ 1315- returned from PACu via stretcher. Drowsy and somewhat disoriented but arouses well. LS clear. Enc to take deep breaths and cough. States pain in back and asking for a warm blanket to her low back. Given. fell back to sleep. BS +. SP cath to gravity drainage w pink urine noted in bag. No staining on dressing. BS Hypo. Denies nausea. SCd's placed on. Will allow to rest. See VS and IV interventions. Spouse present.
[2019-02-02] MEDS: Atorvastatin 10 MG TAB PO (20:05)
[2019-02-03] MEDS: Lactated Ringers 1,000 ML 80 ML IV (03:40)
[2019-02-03 03:45] VITALS: BP 118/57; PULSE 84; RESP 16; TEMP 36.7; O2SAT 98
[2019-02-03] MEDS: HYDROcodone 5/Acetaminophen 325 TAB PO (06:20)
--- NOTE | 2019-02-03 06:41 | W.PM.DS.N ---
Date of service: 02/03/19 Time of Service: 06:54 DS: Diagnosis Discharge Diagnosis (1) Urinary retention: Status: Acute Discharge Plan Disposition Patient Disposition: HOME W/HOME HEALTH SERVICE Condition: Stable Discharge Details Reason For Visit: URINAIRY RETENTION Admit Date/Time: 01/31/19 10:29 Admit Provider: José Lange Attending Provider: José Lange Primary Care Provider: Lina Macario Hospital Course Hospital Course: After the patient developed urinary retention following placement of her bladder neck sling, she was brought back to the hospital to have the sling incised. She was still unable to void following that procedure, she was instructed on intermittent catheterization. She was unable to perform CIC initially, so she was kept in the hospital as an observation status for more intense teaching. She was still unable to void and unable to catheterize herself, so she was brought back to the operating room on 02/02/2019 where she underwent placement of a suprapubic tube. She is being discharged to home with a suprapubic tube in place. She will be taught to clamp the tube to allow for a voiding trial and unclamp the tube if she is unable to void. While she was hospitalized, we tried a number of measures for pelvic floor relaxation such as intravaginal Valium and oral Vistaril. None of these measures seem to help her pelvic floor musculature Home Meds and New Rx's Prescriptions: New cephalexin 500 mg capsule 500 mg PO QHS Qty: 7 RF: 0 No Action propranolol 80 mg capsule,extended release 24 hr 80 mg PO DAILY RF: 0 lutein-zeaxanthin [Ocuvite Lutein 25] 25-5 mg capsule 1 cap PO DAILY RF: 0 cannabidiol (CBD) extract 100 mg/mL solution See Patient Comments PO DAILY RF: 0 Ciprodex 0.3-0.1 % drops,suspension 2 drp OT BID PRNRF: 0 hydrocodone-acetaminophen 5-325 mg tablet 1 - 2 tab PO Q4H MDD 6 PRN (Reason: pain) Qty: 30 RF: 0 lorazepam 0.5 MG tablet 0.5 mg PO PRN RF: 0 gabapentin 300 MG capsule 300 mg PO BID RF: 0 FEVERFEW 500 MG capsule 500 mg PO DAILY RF: 0 bioflavanoids tablet 3 tab DAILY RF: 0 bluegreen algae 500 mg PO DAILY RF: 0 rutin tablet 3 tab DAILY RF: 0 Atorvastatin Calcium 10 MG tablet 10 mg PO DAILY RF: 0 aspirin [Aspir-81] 81 mg Tablet,Delayed Release (Dr/Ec) 81 mg PO RF: 0 levothyroxine 137 mcg Capsule 137 mcg PO DAILY RF: 0 Discharge Instructions Instructions: Acute Urinary Retention in Women (GEN) Additional Instructions: Please change follow up appt with me to @ 2 weeks from now (02/06 is too soon) I am not sending pt home with muscle relaxers (the muscles grey relax more on their own with time) - if she notices a sensation of pelvic spasm, we can always call in a script for her OK to shower or soak in tube Pt would like home health to reinforce suprapubic tube teaching - pt is to plug SP tube so that she can attempt to void and unclamp if she is unable to empty on her own. If more comfortable for her, she can leave the SP tube hooked to continuous drainage overnight so that she does not need to get up to try to void. She should then begin the plugging process each morning Stand Alone Forms: DSU Post op Instructions, Tonya Huber (DSU), Nursing Discharge Form Referrals: [facility] [OTHER] - José Lange MD [ [facility] STAFF PHYSICIAN] - 02/06/19 10:30 am Activity:: no lifting over 20 pounds Equipment/Supplies:: suprapubic tube to gravity Diet:: As Tolerated Discharge Orders Discharge Orders: Discharge Order (Routine); Ordered 02/03/19 Ordered By: José Lange Exam Narrative Exam Narrative: At the time of discharge, she looks well. She does not appear septic or toxic. Her vital signs are documented elsewhere in the chart Her suprapubic tube site is clean with no excessive drainage or redness. Her abdominal incision site is likewise clean. Her vaginal incision shows some spotting of blood. Her urine is grossly clear She is awake, alert and oriented. DS: Data Vitals/I&O Vitals and I&O: Vital Signs Temperature 36.7 C 02/03/19 03:45 Temperature Source Tympanic 02/03/19 03:45 Pulse 84 02/03/19 03:45 Pulse Rhythm Regular 02/02/19 20:00 Respiratory Rate 16 02/03/19 03:45 Respiratory Effort Non-Labored 02/02/19 20:00 Respiratory Depth Normal 02/02/19 20:00 Respiratory Pattern Normal 02/02/19 20:00 Blood Pressure 118/57 L 02/03/19 03:45 Pulse Oximetry 98 02/03/19 03:45 Oxygen Delivery Method Room Air 02/03/19 03:45 Oxygen Flow Rate 0 02/03/19 03:45 Pain Level 0 02/02/19 23:40 Comment 01/29/19 09:16 Intake & Output 02/02/19 02/02/19 02/03/19 11:59 23:59 11:59 Intake Total 1818.000 / 4449.708 7859.333 / 1195.333 Output Total 1050 / 1675 625 / 1675 1600 / 1600 Balance -1050 / 271.322 4974.000 / 143.000 -404.667 / -404.667 Intake: IV 858.000 / 858.000 945.333 / 945.333 Oral 960 / 960 250 / 250 Output: Urine 1050 / 1675 625 / 1675 1600 / 1600 Other: Urine Color Yellow [place] Yellow Urine Appearance Sediment Clear Clear Mucous Threads Comment Notified Tamiko CUMMINS suprapubic cath Stool Size Moderate PFSH Medical History Urinary, incontinence, stress female (Chronic) Atrophic vaginitis (Acute 02/24/13) Lichen sclerosus et atrophicus (Acute 06/26/12) Benign paroxysmal positional vertigo (Acute) Bronchiectasis (Acute) [place] lesion of lung (Acute) Diverticulitis of gastrointestinal tract (Acute) Dysphagia (Acute) Edema (Acute) Extrapyramidal disease (Acute) Generalized anxiety disorder (Acute) Hemoptysis (Acute) Hip pain (Acute) Hyperlipidemia (Acute) Inflammatory dermatosis (Acute) Menopause (Acute) Neuropathy (Acute) Palpitations (Acute) Restless legs (Acute) Right lower quadrant pain (Acute) Urinary incontinence (Acute) Varicose veins of lower extremity (Acute) Hypertensive disorder (Chronic) Hypothyroidism (Chronic) Supraventricular tachycardia (Chronic) Surgical History Acquired absence of both cervix and uterus (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
--- NOTE | 2019-02-03 06:46 | DSE_ITS ---
Date of service: 02/03/19 Time of Service: 06:54 DS: Diagnosis Discharge Diagnosis (1) Urinary retention: Status: Acute Discharge Plan Disposition Patient Disposition: HOME W/HOME HEALTH SERVICE Condition: Stable Discharge Details Reason For Visit: URINAIRY RETENTION Admit Date/Time: 01/31/19 10:29 Admit Provider: José Lange Attending Provider: José Lange Primary Care Provider: Lina Macario Hospital Course Hospital Course: After the patient developed urinary retention following placement of her bladder neck sling, she was brought back to the hospital to have the sling incised. She was still unable to void following that procedure, she was instructed on intermittent catheterization. She was unable to perform CIC initially, so she was kept in the hospital as an observation status for more intense teaching. She was still unable to void and unable to catheterize herself, so she was brought back to the operating room on 02/02/2019 where she underwent placement of a suprapubic tube. She is being discharged to home with a suprapubic tube in place. She will be taught to clamp the tube to allow for a voiding trial and unclamp the tube if she is unable to void. While she was hospitalized, we tried a number of measures for pelvic floor relaxation such as intravaginal Valium and oral Vistaril. None of these measur es seem to help her pelvic floor musculature Home Meds and New Rx's Prescriptions: New cephalexin 500 mg capsule 500 mg PO QHS Qty: 7 RF: 0 No Action propranolol 80 mg capsule,extended release 24 hr 80 mg PO DAILY RF: 0 lutein-zeaxanthin [Ocuvite Lutein 25] 25-5 mg capsule 1 cap PO DAILY RF: 0 cannabidiol (CBD) extract 100 mg/mL solution See Patient Comments PO DAILY RF: 0 Ciprodex 0.3-0.1 % drops,suspension 2 drp OT BID PRNRF: 0 hydrocodone-acetaminophen 5-325 mg tablet 1 - 2 tab PO Q4H MDD 6 PRN (Reason: pain) Qty: 30 RF: 0 lorazepam 0.5 MG tablet 0.5 mg PO PRN RF: 0 gabapentin 300 MG capsule 300 mg PO BID RF: 0 FEVERFEW 500 MG capsule 500 mg PO DAILY RF: 0 bioflavanoids tablet 3 tab DAILY RF: 0 bluegreen algae 500 mg PO DAILY RF: 0 rutin tablet 3 tab DAILY RF: 0 Atorvastatin Calcium 10 MG tablet 10 mg PO DAILY RF: 0 aspirin [Aspir-81] 81 mg Tablet,Delayed Release (Dr/Ec) 81 mg PO RF: 0 levothyroxine 137 mcg Capsule 137 mcg PO DAILY RF: 0 Discharge Instructions Instructions: Acute Urinary Retention in Women (GEN) Additional Instructions: Please change follow up appt with me to @ 2 weeks from now (02/06 is too soon) I am not sending pt home with muscle relaxers (the muscles grey relax more on their own with time) - if she notices a sensation of pelvic spasm, we can always call in a script for her OK to shower or soak in tube Pt would like home health to reinforce suprapubic tube teaching - pt is to plug SP tube so that she can attempt to void and unclamp if she is unable to empty on her own. If more comfortable for her, she can leave the SP tube hooked to continuous drainage overnight so that she does not need to get up to try to void. She should then begin the plugging process each morning Stand Alone Forms: DSU Post op Instructions, Tonya Huber (DSU), Nursing Discharge Form Referrals: [facility] [OTHER] - José Lange MD [ [facility] STAFF PHYSICIAN] - 02/06/19 10:30 am Activity:: no lifting over 20 pounds Equipment/Supplies:: suprapubic tube to gravity Diet:: As Tolerated Discharge Orders Discharge Orders: Discharge Order (Routine); Ordered 02/03/19 Ordered By: José Lange Exam Narrative Exam Narrative: At the time of discharge, she looks well. She does not appear septic or toxic. Her vital signs are documented elsewhere in the chart Her suprapubic tube site is clean with no excessive drainage or redness. Her abdominal incision site is likewise clean. Her vaginal incision shows some spotting of blood. Her urine is grossly clear She is awake, alert and oriented. DS: Data Vitals/I&O Vitals and I&O: Vital Signs Temperature 36.7 C 02/03/19 03:45 Temperature Source Tympanic 02/03/19 03:45 Pulse 84 02/03/19 03:45 Pulse Rhythm Regular 02/02/19 20:00 Respiratory Rate 16 02/03/19 03:45 Respiratory Effort Non-Labored 02/02/19 20:00 Respiratory Depth Normal 02/02/19 20:00 Respiratory Pattern Normal 02/02/19 20:00 Blood Pressure 118/57 L 02/03/19 03:45 Pulse Oximetry 98 02/03/19 03:45 Oxygen Delivery Method Room Air 02/03/19 03:45 Oxygen Flow Rate 0 02/03/19 03:45 Pain Level 0 02/02/19 23:40 Comment 01/29/19 09:16 Intake & Output 02/02/19 02/02/19 02/03/19 11:59 23:59 11:59 Intake Total 1818.000 / 2559.562 1605.333 / 1195.333 Output Total 1050 / 1675 625 / 1675 1600 / 1600 Balance -1050 / 279.129 3350.000 / 143.000 -404.667 / -404.667 Intake: IV 858.000 / 858.000 945.333 / 945.333 Oral 960 / 960 250 / 250 Output: Urine 1050 / 1675 625 / 1675 1600 / 1600 Other: Urine Color Yellow [place] Yellow Urine Appearance Sediment Clear Clear Mucous Threads Comment Notified Tamiko CUMMINS suprapubic cath Stool Size Moderate PFSH Medical History Urinary, incontinence, stress female (Chronic) Atrophic vaginitis (Acute 02/24/13) Lichen sclerosus et atrophicus (Acute 06/26/12) Benign paroxysmal positional vertigo (Acute) Bronchiectasis (Acute) [place] lesion of lung (Acute) Diverticulitis of gastrointestinal tract (Acute) Dysphagia (Acute) Edema (Acute) Extrapyramidal disease (Acute) Generalized anxiety disorder (Acute) Hemoptysis (Acute) Hip pain (Acute) Hyperlipidemia (Acute) Inflammatory dermatosis (Acute) Menopause (Acute) Neuropathy (Acute) Palpitations (Acute) Restless legs (Acute) Right lower quadrant pain (Acute) Urinary incontinence (Acute) Varicose veins of lower extremity (Acute) Hypertensive disorder (Chronic) Hypothyroidism (Chronic) Supraventricular tachycardia (Chronic) Surgical History Acquired absence of both cervix and uterus (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
[2019-02-03 07:14] VITALS: BP 163/79; PULSE 83; RESP 18; TEMP 36.4; O2SAT 98
--- NOTE | 2019-02-03 07:21 | PDOC.HHF2F ---
1. Encounter Date and Reason I certify that JACKELINE AHMADI was seen by José Lange MD on 02/03/19 and that I had a [id number] encounter with this patient that meets the physician face to face encounter requirements. 2. Clinical Findings Supporting Skilled Need and Homebound Status I certify that home health services are medically necessary, include either intermittent care home and/or physical/speech therapy, and that this patient is homebound in that absences from the home require considerable and taxing effort and are infrequent or of short duration, or are attributable to the need to receive medical care. [X] (a) Attached documentation from encounter provides clinical findings supporting skilled need and homebound status (including what assistance patient requires to leave the home). The encounter with the patient was in whole, or in part, for the following medical condition, which is the primary reason for home health care: URINAIRY RETENTION Fci: Pt is being discharged with a suprapubic tube in place. She should plug her SP tube and attempt to void when her bladder fills. She is to unplug the catheter to allow bladder to drain if she is unable to void. Pt needs reinforcement of her catheter care. Physical Therapy: Speech Therapy: Homebound: 3. Certification and Authentication I certify that I composed the above information based on my clinical judgement relating to this patient's medical condition and, if applicable, clinical findings communicated to me by the NPP or inpatient physician who performed the Home Health Referral. All further orders will be obtained through (Community Based Physician - PCP)
--- NOTE | 2019-02-03 07:25 | HHF2F_ITS ---
1. Encounter Date and Reason I certify that JACKELINE AHMADI was seen by José Lange MD on 02/03/19 and that I had a [id number] encounter with this patient that meets the physician face to face encounter requirements. 2. Clinical Findings Supporting Skilled Need and Homebound Status I certify that home health services are medically necessary, include either intermittent penitentiary and/or physical/speech therapy, and that this patient is homebound in that absences from the home require considerable and taxing effort and are infrequent or of short duration, or are attributable to the need to receive medical care. [X] (a) Attached documentation from encounter provides clinical findings supporting skilled need and homebound status (including what assistance patient requires to leave the home). The encounter with the patient was in whole, or in part, for the following medical condition, which is the primary reason for home health care: URINAIRY RETENTION Assisted: Pt is being discharged with a suprapubic tube in place. She should plug her SP tube and attempt to void when her bladder fills. She is to unplug the catheter to allow bladder to drain if she is unable to void. Pt needs reinforcement of her catheter care. Physical Therapy: Speech Therapy: Homebound: 3. Certification and Authentication I certify that I composed the above information based on my clinical judgement relating to this patient's medical condition and, if applicable, clinical findings communicated to me by the NPP or inpatient physician who performed the Home Health Referral. All further orders will be obtained through (Community Based Physician - PCP)
[2019-02-03] MEDS: Docusate Sodium 100 MG CAP PO (08:00)
[2019-02-03] MEDS: Propranolol 40 MG TAB PO (08:00)
[2019-02-03] MEDS: Gabapentin 300 MG CAP PO (08:00)
[2019-02-03] MEDS: Cephalexin 250 MG CAP PO (08:00)
[2019-02-03] MEDS: Tamsulosin 0.4 MG CAPCR 0.8 MG PO (08:01)
--- NOTE | 2019-02-03 12:26 | PDOC.CMDIS ---
- If Service Date Differs Date of service: 02/03/19 Time of Service: 12:26 LACE Index Scoring Tool - Questions: Length of Stay (in days): 3 Acuity (Admit via E.D.?): No E.D. Visits: 0 - Answers: Total Score: 3 Risk of Readmission: Low Risk Care Management Discharge Reason for Hospitalization: urinary retention Discharge Plan: Karen will be discharged home with new home health services through [facility] to assist with her suprapubic tube. She will be transported via private automobile with Riccardo. Karen will follow up with Dr. Lange, her PCP and her follow up plan of care. Patient/Family Education Needs: Discharge plan, limitations, follow up plan of care, Ask Me Three Services Needed at Discharge: Home Health Care Services
--- NOTE | 2019-02-03 12:36 | CMDISCH_ITS ---
- If Service Date Differs Date of service: 02/03/19 Time of Service: 12:26 LACE Index Scoring Tool - Questions: Length of Stay (in days): 3 Acuity (Admit via E.D.?): No E.D. Visits: 0 - Answers: Total Score: 3 Risk of Readmission: Low Risk Care Management Discharge Reason for Hospitalization: urinary retention Discharge Plan: Karen will be discharged home with new home health services through [facility] to assist with her suprapubic tube. She will be transported via private automobile with Riccardo. Karen will follow up with Dr. Lange, her PCP and her follow up plan of care. Patient/Family Education Needs: Discharge plan, limitations, follow up plan of care, Ask Me Three Services Needed at Discharge: Home Health Care Services
== END 2019-02-03 11:03 | disposition home health service (06) | DRG 663 ==
LOC: MS 14:51
PROVIDERS: Admitting Provider Urology; PCP Family Medicine; Visit Provider Urology
PROC: 0TSD0ZZ Reposition Urethra, Open Approach (ICD-10-PCS; CPT 57288; principal; 2019-01-29 10:45)
PROC: 0T9B30Z Drainage of Bladder with Drainage Device, Percutaneous Approach (ICD-10-PCS; CPT 51102; principal; 2019-02-02 11:45)
DX: R33.9 Retention of urine, unspecified (principal); T83.89XA Other specified complication of genitourinary prosthetic devices, implants and grafts, initial encounter; G89.18 Other acute postprocedural pain; K59.00 Constipation, unspecified; G62.9 Polyneuropathy, unspecified; E03.9 Hypothyroidism, unspecified; E78.5 Hyperlipidemia, unspecified; I10 Essential (primary) hypertension
CPT/HCPCS: 57287; 52000 ×2; 51102; 99232; 99238; 81003; 81015; 87086; G0378; J0690; J1100; J1885; J2250; J2405

== ENCOUNTER → 2019-02-17 08:16 | Outpatient (BNVA) | payer MEDICARE, SELFPAY | PROVIDERS: PCP Family Medicine; Visit Provider Urology | DX: R33.9 Retention of urine, unspecified (principal) ==

== ENCOUNTER → 2019-03-12 09:02 | Outpatient (BNVA) | payer MEDICARE, SELFPAY | PROVIDERS: PCP Family Medicine; Visit Provider Urology | DX: Z48.816 Encounter for surgical aftercare following surgery on the genitourinary system (principal); N39.3 Stress incontinence (female) (male) ==

== ENCOUNTER 2019-04-27 01:16 | Outpatient (CLI) | payer MEDICARE, SELFPAY ==
--- NOTE | 2019-04-27 11:00 | DI.MAMMO_ITS ---
SYMPTOM/DIAGNOSIS: SCREENING. BILATERAL SCREENING MAMMOGRAM: Mammograms were interpreted according to the usual protocol including computer analysis with CAD system, tomosynthesis and C view imaging. Comparison is made with exams from 2012 through 2016. The breasts are composed of scattered fibroglandular densities, breast density category B. No suspicious masses or suspicious microcalcifications are seen. There has been no significant change. IMPRESSION: Category 1, negative mammogram. Yearly screening mammography is recommended. Breast density category B. SA ASSESSMENT OF FINDINGS: Negative. Category 1. Patient will receive a letter notifying them of these results. BI-RADS category B. There are scattered areas of fibroglandular density.
== END 2019-04-27 01:36 ==
PROVIDERS: PCP Family Medicine; Visit Provider Nurse Practitioner Family
DX: Z12.31 Encounter for screening mammogram for malignant neoplasm of breast (principal)
CPT/HCPCS: 77063; 77067

== ENCOUNTER → 2019-10-05 09:10 | Outpatient (BNVA) | payer MEDICARE, SELFPAY | PROVIDERS: PCP Family Medicine; Referring Provider Family Medicine; Visit Provider Urology | DX: R32 Unspecified urinary incontinence (principal) | CPT/HCPCS: 99213 ==

== ENCOUNTER → 2019-11-23 09:42 | Outpatient (BNVA) | payer MEDICARE, SELFPAY | PROVIDERS: PCP Family Medicine; Referring Provider Family Medicine; Visit Provider Urology | DX: R32 Unspecified urinary incontinence (principal) ==